=== PATIENT | male | born 1945 | race African-American/Black ===

== ENCOUNTER 2016-07-23 17:39 | Emergency (ER) | payer MEDICARE, MEDICAID ==
[2016-07-23 18:47] LABS: ALT (SGPT) 13 U/L (0-55); AST (SGOT) 18 U/L (5-34); Albumin 3.6 g/dL (3.4-4.8); Alcohol Less than 10 mg/dL (Less than 10); Alkaline Phosphatase 94 U/L (40-150); Anion Gap 13 mmol/L (10-20); BUN (Urea Nitrogen) 21 mg/dL (8.4-25.7); Bilirubin, Total 0.3 mg/dL (0.2-1.2); Calc. Creatinine Clearance 0 mL/min (70-130); Calcium 9.2 mg/dL (7.8-10.44); Carbon Dioxide 24 mmol/L (23-31); Chloride 106 mmol/L (98-107); Estimated GFR-MDRD 55; Globulin 3.1 g/dL (2.4-3.5); Glucose 146 mg/dL (80-115); Hemoglobin 14.3 g/dL (14.0-18.0); Lymphocytes 17 % (21-51); MDiff Complete? YES; Magnesium 2.2 mg/dL (1.6-2.6); Mean Corpuscular Volume 90.7 fl (80.0-94.0); Mean Platelet Volume 7.6 fL (7.4-10.4); Monocytes 3 % (0-10); Neutrophil 80 % (42-75); Platelet Count 232 thou/uL (130-400); Potassium 3.9 mmol/L (3.5-5.1); Protein, Total 6.7 g/dL (5.8-8.1); RBC Distribution Width 12.1 % (11.5-14.5); Red Blood Cell (RBC) Count 4.76 mill/uL (4.70-6.10); Sodium 139 mmol/L (136-145); White Blood Cell (WBC) Count 6.1 thou/uL (4.8-10.8)
[2016-07-23 18:55] LABS: CKMB 3.7 ng/mL (0-6.6); Troponin I 0.042 ng/mL (< 0.028)
[2016-07-23 19:26] LABS: Bilirubin Negative (Negative); Blood, Urine Small (Negative); Clarity Clear (Clear); Glucose, Urine (Dipstick) Negative (Negative); Leukocyte Negative (Negative); Nitrite Negative (Negative); Protein, Urine (Dipstick) Negative (Neg-Trace); Urobilinogen 0.2 mg/dL (0.2-1.0)
[2016-07-23 19:31] LABS: Specific Gravity, Urine Greater/Equal 1.030 (1.005-1.030)
[2016-07-23] MEDS ORDERED: Nitroglycerin 2% Ointment 1 INCH/1 GM Packet ONE (19:31)
[2016-07-23 19:32] LABS: Bacteria/HPF None Seen HPF (None Seen); Cocaine Metabolite Screen Detected (NotDetected); Phencyclidine (PCP) Not Detected (NotDetected); RBC/HPF 0-3 HPF (0-3); Squamous Epithelial 0-3 HPF (0-3); THC/Cannabinoid Screen Not Detected (NotDetected); WBC/HPF None Seen HPF (0-3)
[2016-07-23 19:33] LABS: Amphetamine Not Detected (NotDetected); Barbiturates Screen Not Detected (NotDetected); Benzodiazepine Screen Not Detected (NotDetected); Medtox Control Line Valid? VALID (VALID); Methadone Not Detected (NotDetected); Methamphetamine Not Detected (NotDetected); Opiate Screen Not Detected (NotDetected); Oxycodone Screen Not Detected (NotDetected); Tricyclic Screen Not Detected (NotDetected)
--- NOTE | 2016-07-23 19:54 | CT ---
CT BRAIN: History: Fall. Patient complaining of head injury. Technique: Noncontrast enhanced CT images of the brain obtained from base of the skull through the vertex. Brain and bone windows obtained. 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 Cortical atrophy and deep white matter ischemic lucia nges seen. No evidence of acute intracranial masses, hemorrhages, strokes or contusions seen. 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 IMPRESSION: No evidence of acute intracranial pathology seen. POS: [facility]
--- NOTE | 2016-07-23 20:21 | CT ---
CT LUMBAR SPINE: History: 70-year-old who presents to the emergency room with history of back pain. FINDINGS: Extensive multilevel vacuum disc changes seen at the T12-L1, L1-2, and L3-4 intervertebral disc spac es. Extensive anterior and posterior osteophytes also seen with multilevel facet hypertrophic horton es. The patient has had previous extensive lumbar posterior cervical fusion extending from L3 to S1 . Central spinal stenosis also seen at L3-4. No acute lumbar spine abnormality is seen. IMPRESSION: Multilevel degenerative changes. Incidentally noted: An area of hyperdensity is seen in the upper pole of the right kidney. This ma y represent a cyst or solid lesion. Further workup using elective sonography is recommended. Also noted is enlargement of the prostate gland. Prostate evaluation is also recommended. POS: [facility]
--- NOTE | 2016-07-23 20:29 | RAD ---
AP CHEST: History: Altered mental status. Date: 07-23-16 Comparison: 10-28-14 FINDINGS: AP chest demonstrates the lungs to be well aerated. No evidence of active intrathoracic disease see n. No evidence of effusions, pneumonia or pneumothorax seen. IMPRESSION: Unremarkable AP view chest. POS: [facility]
[2016-07-23] MEDS ORDERED: HYDROcodone/Acetaminophen 10/325 mg Tablet ONE (20:41)
== END 2016-07-23 21:14 | disposition short-term general hospital (02) ==
LOC: MADERS 17:39
DX: R79.89 Other specified abnormal findings of blood chemistry (principal); I10 Essential (primary) hypertension; F17.210 Nicotine dependence, cigarettes, uncomplicated
CPT/HCPCS: 36415; 70450; 71010; 72131; 80053; 80306; 80307; 81003; 81015; 82553; 83735; 83880; 84443; 84484; 85025; 93005

== ENCOUNTER 2016-12-25 11:26 | Emergency (ER) | payer MEDICARE, MEDICAID ==
[~2016-12-25 11:26] MED LIST: Sodium Chloride 0.9% 1,000 ML BAG ONE
[2016-12-25 11:49] LABS: #Eosinphils 0.1 thou/uL (0.0-0.7); #Lymphocytes 1.1 thou/uL (1.20-3.40); #Monocytes 0.3 thou/uL (0.11-0.59); #Neutrophils 3.5 thou/uL (1.40-6.50); %Basophils 0.8 % (0.0-1.0); %Eosinophils 2.1 % (0.0-10.0); %Lymphocytes 22.4 % (21.0-51.0); %Monocytes 6.5 % (0.0-10.0); %Neutrophils 68.3 % (42.0-75.0); Mean Corpuscular HGB CONC 33.7 g/dL (32.0-36.0); Mean Corpuscular Hemoglobin 30.7 pg (27.0-31.0); Platelet Count 161 thou/uL (130-400); RBC Distribution Width 11.5 % (11.5-14.5); Red Blood Cell (RBC) Count 4.55 mill/uL (4.70-6.10); White Blood Cell (WBC) Count 5.1 thou/uL (4.8-10.8)
[2016-12-25 12:04] LABS: ALT (SGPT) 11 U/L (8-55); AST (SGOT) 14 U/L (5-34); Albumin 3.7 g/dL (3.4-4.8); Alkaline Phosphatase 67 U/L (40-150); Anion Gap 12 mmol/L (10-20); BUN (Urea Nitrogen) 19 mg/dL (8.4-25.7); Bilirubin, Total 0.5 mg/dL (0.2-1.2); Calc. Creatinine Clearance 0 mL/min (70-130); Calcium 9.1 mg/dL (7.8-10.44); Carbon Dioxide 23 mmol/L (23-31); Chloride 113 mmol/L (98-107); Estimated GFR-MDRD 64; Globulin 2.9 g/dL (2.4-3.5); Glucose 172 mg/dL (83-110); Magnesium 2.3 mg/dL (1.6-2.6); Potassium 3.6 mmol/L (3.5-5.1); Protein, Total 6.6 g/dL (5.8-8.1); Sodium 144 mmol/L (136-145)
[2016-12-25 12:10] LABS: Troponin I 0.013 ng/mL (< 0.028)
--- NOTE | 2016-12-25 12:16 | CT ---
CT OF THE BRAIN WITHOUT CONTRAST: HISTORY: Altered mental status. COMPARISON: CT brain 07/23/16. FINDINGS: Multifocal encephalomalacia of the cerebellum. Moderate atrophy. Moderate microangiopathic changes . No acute hemorrhage or infarct. Calvarium is intact. There is a left frontal scalp lipoma. Paranasal sinuses and mastoids are clear. IMPRESSION: No acute intracranial abnormality. POS: [facility]
--- NOTE | 2016-12-25 12:30 | RAD ---
PORTABLE AP CHEST X-RAY 12/25/2016 HISTORY: Altered mental status. COMPARISON: 07/23/2016 FINDINGS: The cardiac silhouette is magnified by projection and patient rotation but is stable in size from th e prior exam. The pulmonary vasculature is within normal limits. The lungs are clear. There has b een no interval change from the prior exam. IMPRESSION: No acute cardiopulmonary process. POS: [facility]
[2016-12-25] MEDS ORDERED: Thiamine HCl 200 MG/2 ML VIAL ONE (12:44)
[2016-12-25 12:48] LABS: Lactic Acid 1.9 mmol/L (0.5-2.2)
== END 2016-12-25 13:28 | disposition short-term general hospital (02) ==
LOC: MADERS 11:26
DX: R53.1 Weakness (principal); I10 Essential (primary) hypertension; F17.210 Nicotine dependence, cigarettes, uncomplicated; Z79.82 Long term (current) use of aspirin; Z79.899 Other long term (current) drug therapy
CPT/HCPCS: 36416; 70450; 71010; 80053; 80307; 82553; 83605; 83735; 83880; 84443; 84484; 85025; 93005; 96365; J3411; J7050

== ENCOUNTER 2017-02-04 02:26 | Emergency (ER) | payer MEDICARE, MEDICAID ==
[2017-02-04] MEDS ORDERED: HYDROcodone/Acetaminophen 5/325 mg Tablet ONE (02:56)
[2017-02-04] MEDS ORDERED: Ibuprofen 600 MG TAB ONE (02:56)
[2017-02-04] MEDS ORDERED: Cyclobenzaprine 10 MG TAB ONE (02:56)
== END 2017-02-04 03:20 | disposition home or self-care (01) ==
LOC: MADERS 02:26
DX: M62.89 Other specified disorders of muscle (principal); M54.2 Cervicalgia; F17.210 Nicotine dependence, cigarettes, uncomplicated; E78.5 Hyperlipidemia, unspecified; I10 Essential (primary) hypertension; Z91.19 Patient's noncompliance with other medical treatment and regimen
CPT/HCPCS: 99284

== ENCOUNTER 2017-05-22 09:48 | Emergency (ER) | payer MEDICARE, MEDICAID | END 2017-05-22 10:12 | disposition home or self-care (01) | LOC: MADERS 09:48 | DX: Z71.1 Person with feared health complaint in whom no diagnosis is made (principal); I10 Essential (primary) hypertension; E78.5 Hyperlipidemia, unspecified; F17.210 Nicotine dependence, cigarettes, uncomplicated | CPT/HCPCS: 99284 ==

== ENCOUNTER 2017-10-24 17:20 | Emergency (ER) | payer MEDICARE, MEDICAID ==
[2017-10-24 18:13] LABS: Anion Gap 13 mmol/L (10-20); BUN (Urea Nitrogen) 22 mg/dL (8.4-25.7); Calc. Creatinine Clearance 0 mL/min (70-130); Calcium 8.8 mg/dL (7.8-10.44); Carbon Dioxide 23 mmol/L (23-31); Chloride 106 mmol/L (98-107); Estimated GFR-MDRD 82; Glucose 97 mg/dL (83-110); Potassium 3.6 mmol/L (3.5-5.1); Sodium 138 mmol/L (136-145)
[2017-10-24 18:21] LABS: CKMB 1.7 ng/mL (0-6.6)
--- NOTE | 2017-10-24 18:21 | RAD ---
RADIOGRAPH CHEST 1 VIEW: 10/24/17 HISTORY: 71-year-old male with altered mental status. FINDINGS: The thoracic aorta is tortuous and ectatic. There is no evidence of air space density, pneumothorax, or pulmonary edema. The lateral costophrenic angles are sharp. IMPRESSION: 1) No acute pulmonary findings. 2) Ectasia of thoracic aorta. terra [] POS: [facility]
[2017-10-24 18:27] LABS: Band 1 % (5-11); Hemoglobin 14.1 g/dL (14.0-18.0); Lymphocytes 25 % (21-51); MDiff Complete? YES; Mean Corpuscular HGB CONC 33.6 g/dL (32.0-36.0); Mean Corpuscular Hemoglobin 29.1 pg (27.0-31.0); Mean Corpuscular Volume 86.6 fL (78.0-98.0); Mean Platelet Volume 6.6 fL (7.4-10.4); Monocytes 6 % (0-10); Neutrophil 68 % (42-75); PLT Morphology Comment Appears Adequate; Platelet Count 157 thou/uL (130-400); RBC Distribution Width 11.1 % (11.5-14.5); Red Blood Cell (RBC) Count 4.86 mill/uL (4.70-6.10); White Blood Cell (WBC) Count 4.2 thou/uL (4.8-10.8)
--- NOTE | 2017-10-24 18:49 | CT ---
CT BRAIN NONCONTRAST: DATE: 10/24/17 TIME: 6:17 p.m. HISTORY: 71-year-old male with altered mental status. FINDINGS: There is no midline shift or any other mass effect. There is no evidence of acute intracranial hemor rhage, large cortical infarct, obstructive hydrocephalus, or extraaxial fluid collection. The calvar ium is intact. There is diffuse parenchymal volume loss. There are low attenuation areas in the whi te matter. These are nonspecific, but in a patient of this age, they are probably chronic ischemic w sahra matter changes due to microvascular atherosclerosis. There is a fatty mass in the left frontal s uperficial soft tissues scalp. There is an approximately 2.5 x 2.5 cm region of encephalomalacia and gliosis at the medial inferior aspect right cerebellar hemisphere. There is no interval change overal l since 12/25/16. IMPRESSION: 1) No acute intracranial findings. 2) Involutional changes and chronic ischemic white matter changes. 3) Benign left frontal scalp lipoma. 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 jn [] POS: [facility]
[2017-10-24 20:23] LABS: Bilirubin Negative (Negative); Blood, Urine Small (Negative); Clarity Clear (Clear); Glucose, Urine (Dipstick) Negative (Negative); Leukocyte Negative (Negative); Nitrite Negative (Negative); Protein, Urine (Dipstick) Negative (Neg-Trace); Specific Gravity, Urine 1.025 (1.005-1.030); Urobilinogen 0.2 mg/dL (0.2-1.0)
[2017-10-24 20:24] LABS: Bacteria/HPF None Seen HPF (None Seen); Squamous Epithelial 0-3 HPF (0-3); WBC/HPF None Seen HPF (0-3)
[2017-10-24 20:37] LABS: Amphetamine Not Detected (NotDetected); Barbiturates Screen Not Detected (NotDetected); Benzodiazepine Screen Not Detected (NotDetected); Cocaine Metabolite Screen Detected (NotDetected); Medtox Control Line Valid? VALID (VALID); Methadone Not Detected (NotDetected); Methamphetamine Not Detected (NotDetected); Opiate Screen Not Detected (NotDetected); Oxycodone Screen Not Detected (NotDetected); Phencyclidine (PCP) Not Detected (NotDetected); THC/Cannabinoid Screen Not Detected (NotDetected); Tricyclic Screen Not Detected (NotDetected)
== END 2017-10-24 21:09 | disposition home or self-care (01) ==
LOC: MADERS 17:20
DX: F14.10 Cocaine abuse, uncomplicated (principal); E86.0 Dehydration; E78.5 Hyperlipidemia, unspecified; I10 Essential (primary) hypertension; F17.210 Nicotine dependence, cigarettes, uncomplicated; Z79.899 Other long term (current) drug therapy
CPT/HCPCS: 70450; 71045; 80048; 80306; 81003; 81015; 82553; 83605; 83880; 84484; 85025; 93005; 94760; 96360; J7050; J7620

== ENCOUNTER 2018-01-25 10:34 | Emergency (ER) | payer MEDICARE, MEDICAID ==
[2018-01-25 11:19] LABS: #Basophils 0.1 thou/uL (0.0-0.2); #Eosinphils 0.1 thou/uL (0.0-0.7); #Lymphocytes 1.2 thou/uL (1.20-3.40); #Monocytes 0.4 thou/uL (0.11-0.59); #Neutrophils 3.5 thou/uL (1.40-6.50); %Basophils 1.2 % (0.0-1.0); %Lymphocytes 23.3 % (21.0-51.0); %Monocytes 6.9 % (0.0-10.0); %Neutrophils 67.6 % (42.0-75.0); Hemoglobin 13.5 g/dL (14.0-18.0); Mean Corpuscular HGB CONC 33.5 g/dL (32.0-36.0); Mean Corpuscular Hemoglobin 30.7 pg (27.0-31.0); Mean Corpuscular Volume 91.8 fL (78.0-98.0); Mean Platelet Volume 7.6 fL (7.4-10.4); Platelet Count 208 thou/uL (130-400); RBC Distribution Width 11.7 % (11.5-14.5); White Blood Cell (WBC) Count 5.1 thou/uL (4.8-10.8)
[2018-01-25 11:33] LABS: ALT (SGPT) 9 U/L (8-55); AST (SGOT) 20 U/L (5-34); Albumin 4.1 g/dL (3.4-4.8); Alkaline Phosphatase 80 U/L (40-150); Anion Gap 14 mmol/L (10-20); BUN (Urea Nitrogen) 24 mg/dL (8.4-25.7); Bilirubin, Total 0.7 mg/dL (0.2-1.2); Calc. Creatinine Clearance 0 mL/min (70-130); Calcium 9.4 mg/dL (7.8-10.44); Carbon Dioxide 23 mmol/L (23-31); Chloride 110 mmol/L (98-107); Estimated GFR-MDRD 77; Globulin 3.1 g/dL (2.4-3.5); Glucose 93 mg/dL (83-110); Lipase 20 U/L (8-78); Potassium 3.9 mmol/L (3.5-5.1); Protein, Total 7.2 g/dL (5.8-8.1); Sodium 143 mmol/L (136-145)
[2018-01-25 11:34] LABS: Acetaminophen Less than 6.0 mcg/mL (10.0-30.0); Alcohol Less than 10 mg/dL (Less than 10); CK (CPK) 490 U/L (30-200); Salicylate Less than 8.0 mg/dL (15.0-30.0)
[2018-01-25 11:35] LABS: CKMB 4.4 ng/mL (0-6.6); Troponin I 0.029 ng/mL (< 0.028)
--- NOTE | 2018-01-25 11:36 | RAD ---
SINGLE VIEW OF THE CHEST: COMPARISON: 10/24/17. HISTORY: Altered mental status. FINDINGS: Single view of the chest shows a normal sized cardiomediastinal silhouette. There is no evidence of c onsolidation, mass, or pleural effusion. The bones are unremarkable. IMPRESSION: No evidence of acute cardiopulmonary disease. POS: [facility]
[2018-01-25 11:38] LABS: Bilirubin Negative (Negative); Blood, Urine Trace (Negative); Clarity Hazy (Clear); Glucose, Urine (Dipstick) Negative (Negative); Leukocyte Negative (Negative); Nitrite Negative (Negative); Protein, Urine (Dipstick) 30 mg/dL (Neg-Trace); Specific Gravity, Urine 1.025 (1.005-1.030); Urobilinogen 0.2 mg/dL (0.2-1.0); pH, Urine 5.5 (5.0-9.0)
[2018-01-25 11:44] LABS: Bacteria/HPF 2+ HPF (None Seen); RBC/HPF 0-3 HPF (0-3); WBC/HPF 0-3 HPF (0-3)
--- NOTE | 2018-01-25 11:52 | CT ---
CT OF THE BRAIN WITHOUT CONTRAST: COMPARISON: 10/24/17. HISTORY: Altered mental status. TECHNIQUE: Multiple contiguous axial images were obtained in a CT of the brain without contrast. FINDINGS: Diffuse scattered hypodensities in the subcortical and periventricular white matter are likely second manoj to small-vessel ischemic disease. There is a remote area of encephalomalacia from infarction in the right cerebellar hemisphere. There is no new large confluent infarction. There is no evidence o f hydrocephalus, intracranial hemorrhage, or extraaxial fluid collection. The calvarium and overlying soft tissues are unremarkable. There is a lipoma in the left frontal sca lp. The underlying calvarium is unremarkable. The visualized paranasal sinuses and mastoid air cell s are well aerated. IMPRESSION: No evidence of acute intracranial abnormality. POS: [facility]
[2018-01-25 11:54] LABS: Amphetamine Not Detected (NotDetected); Barbiturates Screen Not Detected (NotDetected); Benzodiazepine Screen Not Detected (NotDetected); Cocaine Metabolite Screen Not Detected (NotDetected); Medtox Control Line Valid? VALID (VALID); Methadone Not Detected (NotDetected); Methamphetamine Not Detected (NotDetected); Opiate Screen Not Detected (NotDetected); Oxycodone Screen Not Detected (NotDetected); Phencyclidine (PCP) Not Detected (NotDetected); THC/Cannabinoid Screen Not Detected (NotDetected); Tricyclic Screen Not Detected (NotDetected)
== END 2018-01-25 13:21 | disposition short-term general hospital (02) ==
LOC: MADERS 10:34
DX: R41.82 Altered mental status, unspecified (principal); E78.5 Hyperlipidemia, unspecified; I10 Essential (primary) hypertension; F17.210 Nicotine dependence, cigarettes, uncomplicated; Z79.899 Other long term (current) drug therapy
CPT/HCPCS: 36415; 70450; 71045; 80053; 80306; 80307; 81003; 81015; 82140; 82553; 83690; 84443; 84484; 85025; 93005